=== PATIENT | female | born 1970 | race Asian ===

== ENCOUNTER → 2023-05-30 09:30 | Outpatient (REF) | payer BC, SELFPAY | LOC: HWWDC 09:30 | PROVIDERS: ATTENDING PHYSICIAN Family Medicine; REFERRING PHYSICIAN Obstetrics & Gynecology | DX: Z12.31 Encounter for screening mammogram for malignant neoplasm of breast (principal) | CPT/HCPCS: 77063; 77067 ==

== ENCOUNTER → 2024-09-04 13:26 | Outpatient (REF) | payer BC, SELFPAY | LOC: HWWDC 13:26 | PROVIDERS: ATTENDING PHYSICIAN Obstetrics & Gynecology; FAMILY PHYSICIAN Family Medicine | DX: Z12.31 Encounter for screening mammogram for malignant neoplasm of breast (principal) | CPT/HCPCS: 77063; 77067 ==